=== PATIENT | male | born 1980 | race Caucasian/White ===

== ENCOUNTER 2020-01-19 12:35 | Outpatient (REF) | payer OTHER, SELFPAY | END 2020-01-19 12:36 | disposition home or self-care (01) | LOC: HO.HMGCLDS 12:35 | PROVIDERS: PCP Internal Medicine; Visit Provider Internal Medicine | DX: Z20.828 Contact with and (suspected) exposure to other viral communicable diseases (principal) | CPT/HCPCS: 87635 ==

== ENCOUNTER → 2020-01-25 12:23 | Outpatient (BNVA) | payer OTHER, SELFPAY | PROVIDERS: PCP Internal Medicine; Referring Provider Internal Medicine; Visit Provider Nurse Practitioner | DX: Z76.89 Persons encountering health services in other specified circumstances (principal) ==

== ENCOUNTER 2020-02-21 10:11 | Outpatient (REF) | payer OTHER, SELFPAY ==
--- NOTE | 2020-02-21 10:22 | US_ITS ---
EXAMINATION: US ABDOMEN LIMITED CLINICAL INFORMATION: Nonalcoholic steatohepatitis. COMPARISON: Ultrasound abdomen with the elastography 04/06/2019. Ultrasound abdomen 08/18/2018. TECHNIQUE: Real-time imaging of the right upper quadrant abdominal viscera. FINDINGS: PANCREAS: The head and body the pancreas are normal. The tail is not well visualized due to bowel gas. LIVER: Liver echotexture is increased. The liver is normal in size and contour. There is a hypoechoic area adjacent to the gallbladder, a characteristic location of focal fatty sparing. No other focal hepatic lesion. There is no intrahepatic biliary duct dilatation seen. GALLBLADDER: Normal. The gallbladder is physiologically distended without evidence of stones, sludge, polyps, wall thickening or pericholecystic fluid. COMMON BILE DUCT: Normal in caliber measuring 0.3 cm in diameter. RIGHT KIDNEY: Normal. No hydronephrosis. No renal calculi or focal parenchymal lesions. The kidney measures 12.1 cm in maximum dimension. FREE FLUID: None. US/US abdomen limited IMPRESSION: Echogenic liver probably representing fatty infiltration. Limited visualization of the tail of the pancreas.
[2020-02-21 12:01] LABS: Alanine Aminotransferase 90 U/L (0-40); Albumin Level 4.4 g/dL (3.5-5.0); Alkaline Phosphatase 61 U/L (39-117); Aspartate Amino Transferase 35 U/L (5-37); Bilirubin Direct 0.2 mg/dL (0.0-0.5); Bilirubin Total 0.6 mg/dL (0.0-1.0); Total Protein 7.8 g/dL (6.5-8.0)
[2020-02-23 13:27] LABS: Alpha Fetoprotein 9.2 ng/mL (<6.1)
== END 2020-02-21 10:12 | disposition home or self-care (01) ==
LOC: HO.US 10:11
PROVIDERS: PCP Internal Medicine; Visit Provider Nurse Practitioner
DX: K75.81 Nonalcoholic steatohepatitis (NASH) (principal)
CPT/HCPCS: 76705; 80076; 82105

== ENCOUNTER 2020-11-28 10:53 | Outpatient (REF) | payer OTHER, SELFPAY ==
[2020-11-28 13:52] LABS: Hematocrit 44.7 % (42-52); Hemoglobin 15.1 g/dl (14.0-18.0); Mean Corpuscular HGB Conc 33.8 g/dl (31.0-36.0); Mean Corpuscular Hemoglobin 28.7 pg (27.0-33.0); Mean Corpuscular Volume 84.8 fL (80-98); Mean Platelet Volume 10.1 fL (9.4-12.4); Platelet Count 302 X10*3/uL (160-400); Red Blood Count 5.27 X10*6/uL (4.60-5.80); Red Cell Distribution Width 12.4 % (11.0-16.0); White Blood Count 4.9 X10*3/uL (4.8-10.8)
[2020-11-28 14:24] LABS: Anion Gap 17 (12-20); Blood Urea Nitrogen 10 mg/dL (9-16); Calcium 9.5 mg/dL (8.4-10.2); Carbon Dioxide 22 mmol/L (22-29); Chloride 100 mmol/L (96-108); Cholesterol 359 mg/dL; Estimated Glomerular Filt Rate > 60; Glucose Random 88 mg/dL (60-115); HDL Cholesterol 39 mg/dL; Potassium 4.5 mmol/L (3.3-5.1); Sodium 134 mmol/L (135-145); Triglycerides 641 mg/dL
== END 2020-11-28 10:54 | disposition home or self-care (01) ==
LOC: HO.HMGCLDS 10:53
PROVIDERS: PCP Internal Medicine; Visit Provider Internal Medicine
DX: B36.0 Pityriasis versicolor (principal); K75.81 Nonalcoholic steatohepatitis (NASH)
CPT/HCPCS: 36415; 80048; 80061; 85027

== ENCOUNTER → 2020-12-24 08:21 | Outpatient (BNVA) | payer OTHER, SELFPAY | PROVIDERS: PCP Internal Medicine; Visit Provider Nurse Practitioner ==

== ENCOUNTER 2021-02-04 09:07 | Outpatient (REF) | payer OTHER, SELFPAY ==
[2021-02-04 11:42] LABS: MANUAL DIFF FLAG NO
[2021-02-04 11:52] LABS: Basophils Absolute Auto 0.1 X10*3/uL (0.0-0.2); Basophils Percent Auto 0.9 % (0-2); Eosinophils Absolute Auto 0.1 X10*3/uL (0.0-0.4); Eosinophils Percent Auto 1.5 % (0-4); Hematocrit 44.2 % (42.0-52.0); Hemoglobin 14.5 g/dl (14.0-18.0); Imm Gran Abs Auto 0.02 X10*3/uL (0.00-0.03); Imm Gran Pct Auto 0.4 % (0.0-0.4); Lymphocytes Absolute Auto 1.8 X10*3/uL (1.2-4.9); Lymphocytes Percent Auto 34.2 % (20-40); Mean Corpuscular HGB Conc 32.8 g/dl (31.0-36.0); Mean Corpuscular Hemoglobin 28.5 pg (27.0-33.0); Mean Corpuscular Volume 86.8 fL (80.0-98.0); Mean Platelet Volume 9.8 fL (9.4-12.4); Monocytes Absolute Auto 0.6 X10*3/uL (0.1-1.2); Monocytes Percent Auto 10.7 % (2-11); Neutrophils Absolute Auto 2.8 x10*3/uL (2.0-8.3); Neutrophils Percent Auto 52.3 % (45-73); Platelet Count 291 X10*3/uL (160-400); Red Blood Count 5.09 X10*6/uL (4.60-5.80); Red Cell Distribution Width 12.7 % (11.0-16.0); White Blood Count 5.4 X10*3/uL (4.8-10.8)
[2021-02-04 12:15] LABS: Alanine Aminotransferase 145 U/L (0-40); Albumin Level 4.4 g/dL (3.5-5.0); Alkaline Phosphatase 63 U/L (39-117); Anion Gap 15 (12-20); Aspartate Amino Transferase 54 U/L (5-37); Bilirubin Total 0.8 mg/dL (0.0-1.0); Blood Urea Nitrogen 14 mg/dL (9-16); Calcium 9.2 mg/dL (8.4-10.2); Carbon Dioxide 24 mmol/L (22-29); Chloride 102 mmol/L (96-108); Cholesterol 278 mg/dL; Estimated Glomerular Filt Rate > 60; Gamma Glutamyl Transpeptidase 112 U/L (11-51); Glucose Fasting 101 mg/dL (60-99); HDL Cholesterol 44 mg/dL; Lipase 15 U/L (8-78); Potassium 4.4 mmol/L (3.3-5.1); Sodium 137 mmol/L (135-145); Total Protein 7.9 g/dL (6.5-8.0); Triglycerides 550 mg/dL
[2021-02-04 12:28] LABS: TSH reflex Free T4 0.88 uIU/mL (0.32-4.0)
[2021-02-07 14:06] LABS: Alpha Fetoprotein 10.9 ng/mL (<6.1)
== END 2021-02-04 09:08 | disposition home or self-care (01) ==
LOC: HO.HMGCLDS 09:07
PROVIDERS: PCP Internal Medicine; Visit Provider Nurse Practitioner
DX: K70.30 Alcoholic cirrhosis of liver without ascites (principal); K75.81 Nonalcoholic steatohepatitis (NASH); E66.09 Other obesity due to excess calories; E78.2 Mixed hyperlipidemia; R79.89 Other specified abnormal findings of blood chemistry
CPT/HCPCS: 36415; 80053; 80061; 82105; 82977; 83690; 84443; 85025

== ENCOUNTER 2021-02-06 08:58 | Outpatient (REF) | payer OTHER, SELFPAY ==
--- NOTE | ~2021-02-06 | US_ITS ---
EXAMINATION: US ABDOMEN LIMITED CLINICAL INFORMATION: Nonalcoholic steatohepatitis. COMPARISON: Limited abdominal ultrasound 02/21/2020. Ultrasound abdomen with elastography 04/06/2019. TECHNIQUE: Real-time imaging of the right upper quadrant abdominal viscera. FINDINGS: PANCREAS: Normal. LIVER: The liver is normal in size. The liver contour is normal. There is diffuse hepatic echogenicity with areas of focal fatty sparing adjacent to the gallbladder. No focal hepatic lesion. There is no intrahepatic biliary duct dilatation seen. GALLBLADDER: The gallbladder is physiologically distended without evidence of stones, sludge, polyps, wall thickening or pericholecystic fluid. Gallbladder wall thickness measures 0.13 COMMON BILE DUCT: Normal in caliber measuring 0.26 cm in diameter. RIGHT KIDNEY: There is hypertrophic column of Jluis in midpole. No hydronephrosis. No renal calculi or focal parenchymal lesions. The kidney measures 12.8 cm in maximum dimension. FREE FLUID: None. US/US abdomen limited IMPRESSION: Diffuse hepatic echogenicity with areas of focal fatty sparing. Unremarkable gallbladder, pancreas and CBD. Prominent column of Jluis in right kidney.
== END 2021-02-06 08:59 | disposition home or self-care (01) ==
LOC: HO.HMGCX 08:58
PROVIDERS: PCP Internal Medicine; Visit Provider Nurse Practitioner
DX: K75.81 Nonalcoholic steatohepatitis (NASH) (principal)
CPT/HCPCS: 76705

== ENCOUNTER 2021-03-28 10:20 | Outpatient (REF) | payer OTHER, SELFPAY ==
[2021-04-05 10:01] LABS: Influenza A RNA Ref NOT DETECTED; Influenza B RNA Ref NOT DETECTED
[2021-04-05 10:03] LABS: SARS CoV2 RNA Ref DETECTED
== END 2021-03-28 10:21 | disposition home or self-care (01) ==
LOC: HO.LAB 10:20
PROVIDERS: Visit Provider Hospitalist
DX: R51.9 Headache, unspecified (principal); Z20.822 Contact with and (suspected) exposure to COVID-19
CPT/HCPCS: 0241U; 36415

== ENCOUNTER 2021-04-23 08:56 | Outpatient (REF) | payer OTHER, SELFPAY ==
[2021-04-23 12:04] LABS: Alanine Aminotransferase 23 U/L (0-40); Albumin Level 4.5 g/dL (3.5-5.0); Alkaline Phosphatase 64 U/L (39-117); Anion Gap 12 (12-20); Aspartate Amino Transferase 28 U/L (5-37); Bilirubin Total 0.6 mg/dL (0.0-1.0); Blood Urea Nitrogen 15 mg/dL (9-16); Calcium 10.1 mg/dL (8.4-10.2); Carbon Dioxide 26 mmol/L (22-29); Chloride 104 mmol/L (96-108); Cholesterol 273 mg/dL; Estimated Glomerular Filt Rate > 60; Glucose Fasting 101 mg/dL (60-99); HDL Cholesterol 39 mg/dL; LDL Cholesterol Calculated 189 mg/dl; Potassium 4.9 mmol/L (3.3-5.1); Sodium 137 mmol/L (135-145); Total Protein 8.1 g/dL (6.5-8.0); Triglycerides 227 mg/dL
[2021-04-24 11:41] LABS: Alpha Fetoprotein 10.7 ng/mL (<6.1)
== END 2021-04-23 08:57 | disposition home or self-care (01) ==
LOC: HO.HMGCLDS 08:56
PROVIDERS: PCP Internal Medicine; Visit Provider Internal Medicine
DX: Z00.01 Encounter for general adult medical examination with abnormal findings (principal); B36.0 Pityriasis versicolor; E66.09 Other obesity due to excess calories; E78.2 Mixed hyperlipidemia; K70.9 Alcoholic liver disease, unspecified; R79.89 Other specified abnormal findings of blood chemistry
CPT/HCPCS: 36415; 80053; 80061; 82105

== ENCOUNTER 2021-05-02 11:45 | Outpatient (REF) | payer OTHER, SELFPAY ==
[2021-05-04 19:31] LABS: TS Negative Control Passed; TS Panel A 0; TS Panel B 0; TS Positive Control Passed; TSpotTB Negative (Negative)
== END 2021-05-02 11:46 | disposition home or self-care (01) ==
LOC: HO.HMGCLDS 11:45
PROVIDERS: PCP Internal Medicine; Visit Provider Internal Medicine
DX: Z11.1 Encounter for screening for respiratory tuberculosis (principal)
CPT/HCPCS: 36415; 86481

== ENCOUNTER 2021-06-27 09:04 | Outpatient (REF) | payer OTHER, SELFPAY ==
[2021-06-27 11:32] LABS: Blood Urea Nitrogen 12 mg/dL (9-16); Estimated Glomerular Filt Rate > 60
[2021-06-28 20:06] LABS: HCG Tumor Marker <3 mIU/mL (<5)
== END 2021-06-27 09:05 | disposition home or self-care (01) ==
LOC: HO.LAB 09:04
PROVIDERS: PCP Internal Medicine; Referring Provider Internal Medicine; Visit Provider Nurse Practitioner
DX: K70.30 Alcoholic cirrhosis of liver without ascites (principal); R77.2 Abnormality of alphafetoprotein; E78.00 Pure hypercholesterolemia, unspecified; Z78.9 Other specified health status
CPT/HCPCS: 36415; 82565; 84520; 84702

== ENCOUNTER → 2021-09-18 15:03 | Outpatient (BNVA) | payer OTHER, SELFPAY | PROVIDERS: PCP Internal Medicine; Referring Provider Nurse Practitioner; Visit Provider Internal Medicine | DX: E78.2 Mixed hyperlipidemia (principal); K70.9 Alcoholic liver disease, unspecified; K70.30 Alcoholic cirrhosis of liver without ascites | CPT/HCPCS: 93005 ==

== ENCOUNTER 2021-10-11 08:42 | Outpatient (REF) | payer OTHER, SELFPAY ==
[2021-10-11 12:23] LABS: Alanine Aminotransferase 43 U/L (0-40); Albumin Level 4.6 g/dL (3.5-5.0); Alkaline Phosphatase 57 U/L (39-117); Anion Gap 10 (12-20); Aspartate Amino Transferase 23 U/L (5-37); Bilirubin Total 0.7 mg/dL (0.0-1.0); Blood Urea Nitrogen 14 mg/dL (9-16); Calcium 9.7 mg/dL (8.4-10.2); Carbon Dioxide 27 mmol/L (22-29); Chloride 104 mmol/L (96-108); Cholesterol 308 mg/dL; Estimated Glomerular Filt Rate > 60; Glucose Fasting 105 mg/dL (60-99); HDL Cholesterol 38 mg/dL; LDL Cholesterol Calculated 210 mg/dl; Potassium 4.9 mmol/L (3.3-5.1); Sodium 136 mmol/L (135-145); Total Protein 7.9 g/dL (6.5-8.0); Triglycerides 300 mg/dL
== END 2021-10-11 08:43 | disposition home or self-care (01) ==
LOC: HO.HMGCLDS 08:42
PROVIDERS: Visit Provider Internal Medicine
DX: E78.2 Mixed hyperlipidemia (principal); R79.89 Other specified abnormal findings of blood chemistry
CPT/HCPCS: 36415; 80053; 80061

== ENCOUNTER 2022-04-29 08:30 | Outpatient (REF) | payer OTHER, SELFPAY ==
[2022-04-29 12:11] LABS: Alanine Aminotransferase 35 U/L (0-40); Albumin Level 4.3 g/dL (3.5-5.0); Alkaline Phosphatase 55 U/L (39-117); Anion Gap 14 (12-20); Aspartate Amino Transferase 23 U/L (5-37); Bilirubin Total 0.5 mg/dL (0.0-1.0); Blood Urea Nitrogen 10 mg/dL (9-16); Calcium 9.3 mg/dL (8.4-10.2); Carbon Dioxide 23 mmol/L (22-29); Chloride 105 mmol/L (96-108); Cholesterol 300 mg/dL; Estimated Glomerular Filt Rate > 60; Glucose Fasting 104 mg/dL (60-99); HDL Cholesterol 40 mg/dL; LDL Cholesterol Calculated 214 mg/dl; Potassium 4.7 mmol/L (3.3-5.1); Sodium 137 mmol/L (135-145); Total Protein 7.3 g/dL (6.5-8.0); Triglycerides 230 mg/dL
== END 2022-04-29 08:31 | disposition home or self-care (01) ==
LOC: HO.HMGCLDS 08:30
PROVIDERS: PCP Internal Medicine; Visit Provider Internal Medicine
DX: E66.09 Other obesity due to excess calories (principal); E78.2 Mixed hyperlipidemia
CPT/HCPCS: 36415; 80053; 80061

== ENCOUNTER 2022-04-30 09:05 | Outpatient (REF) | payer OTHER, SELFPAY ==
[2022-04-30 11:45] LABS: Estimated Average Glucose 108 mg/dL; Hemoglobin A1c % 5.4 %
[2022-04-30 11:54] LABS: Alanine Aminotransferase 33 U/L (0-40); Albumin Level 4.4 g/dL (3.5-5.0); Alkaline Phosphatase 58 U/L (39-117); Anion Gap 15 (12-20); Aspartate Amino Transferase 19 U/L (5-37); Bilirubin Total 0.4 mg/dL (0.0-1.0); Blood Urea Nitrogen 9 mg/dL (9-16); Calcium 9.4 mg/dL (8.4-10.2); Carbon Dioxide 19 mmol/L (22-29); Chloride 106 mmol/L (96-108); Estimated Glomerular Filt Rate > 60; Glucose Fasting 110 mg/dL (60-99); Potassium 3.9 mmol/L (3.3-5.1); Sodium 136 mmol/L (135-145); Total Protein 7.6 g/dL (6.5-8.0)
[2022-05-03 10:08] LABS: TS Negative Control Passed; TS Panel A 0; TS Panel B 0; TS Positive Control Passed; TSpotTB Negative (Negative)
== END 2022-04-30 09:06 | disposition home or self-care (01) ==
LOC: HO.HMGCLDS 09:05
PROVIDERS: PCP Internal Medicine; Visit Provider Internal Medicine
DX: E78.2 Mixed hyperlipidemia (principal); R73.01 Impaired fasting glucose; Z11.1 Encounter for screening for respiratory tuberculosis; Z28.39 Other underimmunization status
CPT/HCPCS: 36415; 80053; 83036; 86481; 86735; 86762; 86765; 86787

== ENCOUNTER 2022-07-28 13:45 | Outpatient (REF) | payer OTHER, SELFPAY ==
[2022-07-28 16:26] LABS: MANUAL DIFF FLAG NO
[2022-07-28 16:34] LABS: Basophils Absolute Auto 0.1 X10*3/uL (0.0-0.2); Basophils Percent Auto 0.4 % (0-2); Eosinophils Absolute Auto 0.1 X10*3/uL (0.0-0.4); Eosinophils Percent Auto 0.6 % (0-4); Hematocrit 45.6 % (42.0-52.0); Imm Gran Abs Auto 0.07 X10*3/uL (0.00-0.03); Imm Gran Pct Auto 0.5 % (0.0-0.4); Lymphocytes Absolute Auto 1.6 X10*3/uL (1.2-4.9); Lymphocytes Percent Auto 11.8 % (20-40); Mean Corpuscular HGB Conc 32.9 g/dl (31.0-36.0); Mean Corpuscular Hemoglobin 28.1 pg (27.0-33.0); Mean Corpuscular Volume 85.4 fL (80.0-98.0); Mean Platelet Volume 10.1 fL (9.4-12.4); Monocytes Absolute Auto 1.2 X10*3/uL (0.1-1.2); Monocytes Percent Auto 8.7 % (2-11); Neutrophils Absolute Auto 10.6 x10*3/uL (2.0-8.3); Platelet Count 315 X10*3/uL (160-400); Red Blood Count 5.34 X10*6/uL (4.60-5.80); Red Cell Distribution Width 12.6 % (11.0-16.0); White Blood Count 13.6 X10*3/uL (4.8-10.8)
[2022-07-28 16:46] LABS: Anion Gap 11 (12-20); Blood Urea Nitrogen 9 mg/dL (9-16); Calcium 9.8 mg/dL (8.4-10.2); Carbon Dioxide 27 mmol/L (22-29); Chloride 101 mmol/L (96-108); Estimated Glomerular Filt Rate > 60; Glucose Random 90 mg/dL (60-115); Potassium 4.4 mmol/L (3.3-5.1); Sodium 135 mmol/L (135-145)
== END 2022-07-28 13:46 | disposition home or self-care (01) ==
LOC: HO.HMGCLDS 13:45
PROVIDERS: PCP Internal Medicine; Visit Provider Physician Assistant
DX: R10.32 Left lower quadrant pain (principal)
CPT/HCPCS: 36415; 80048; 85025

== ENCOUNTER 2022-07-29 11:18 | Outpatient (REF) | payer OTHER, SELFPAY ==
--- NOTE | ~2022-07-29 | CT_ITS ---
EXAMINATION: CT ABDOMEN AND PELVIS WITH CONTRAST CLINICAL INFORMATION: Left lower quadrant pain COMPARISON: Previous abdominal ultrasound most recent January 2021 TECHNIQUE: Multidetector volumetric images were obtained from the superior aspect of the liver through the pubic symphysis following administration 85 mL of Omnipaque 350 intravenous contrast. Sagittal and coronal reformatted images were obtained on the technologist's workstation. Oral contrast: Yes This CT examination was performed using dose optimization techniques as appropriate, variously including the following: *Automated exposure control *Adjustment of mA and/or kV according to patient size (this includes techniques or standardized protocols for targeted exams where dose is matched to indication/reason for exam; i.e. extremities or head) *Use of iterative reconstruction technique DLP: 491 mGy-cm FINDINGS: LUNG BASES: The visualized lung bases are unremarkable. LIVER, GALLBLADDER, AND BILIARY TREE: The liver is normal in size, shape, and attenuation. There are 2 small 3 to 4 mm low-attenuation liver lesions high in the dome and in the anterior segment of the right lobe. These are too small to definitively characterize but probably represent small cysts. No other focal hepatic lesion or biliary ductal dilatation is present. The gallbladder is unremarkable with no evidence of radiopaque gallstones, gallbladder wall thickening, or obvious pericholecystic inflammatory changes. PANCREAS: Unremarkable. SPLEEN: Unremarkable. ADRENAL GLANDS: Unremarkable. KIDNEYS AND URETERS: The kidneys are normal in size, shape, and attenuation. No hydronephrosis, hydroureter, or calculi seen. No perinephric stranding. BLADDER: Unremarkable. GASTROINTESTINAL TRACT: There is mild diverticulosis of the colon. There is wall thickening and edema of the left colon and stranding of the surrounding fat. Differential would include colitis and diverticulitis. No evidence of obstruction, perforation or abscess. Short segment nonobstructing small bowel intussusception axial image 48 series 3 coronal reconstructed image 35 and sagittal reconstructed image 31. The appendix is normal. ABDOMINAL WALL: No significant hernia is appreciated. LYMPH NODES: Normal. VASCULAR: Unremarkable. PELVIC VISCERA: Unremarkable. OSSEOUS STRUCTURES: Unremarkable. CT/CT abdomen pelvis w IV con IMPRESSION: Mild colitis or or diverticulitis of the left colon. Short segment nonobstructing small bowel intussusception. Fleischner guidelines were followed.
[2022-07-29] MEDS: Barium Sulfate Oral (Vanilla) 450 ML ORAL.SUSP 900 ML PO (13:56)
[2022-07-29] MEDS: iohexoL 350 MG/ML 100 ML INFUS..BTL IV (13:57)
== END 2022-07-29 11:19 | disposition home or self-care (01) ==
LOC: HO.CT 11:18
PROVIDERS: PCP Internal Medicine; Visit Provider Physician Assistant
DX: R10.32 Left lower quadrant pain (principal)
CPT/HCPCS: 74177; Q9967

== ENCOUNTER 2022-07-30 08:41 | Outpatient (REF) | payer OTHER, SELFPAY ==
[2022-07-30 12:16] LABS: Alanine Aminotransferase 63 U/L (0-40); Albumin Level 4.4 g/dL (3.5-5.0); Alkaline Phosphatase 72 U/L (39-117); Anion Gap 12 (12-20); Aspartate Amino Transferase 36 U/L (5-37); Bilirubin Total 0.7 mg/dL (0.0-1.0); Blood Urea Nitrogen 12 mg/dL (9-16); Calcium 9.6 mg/dL (8.4-10.2); Carbon Dioxide 29 mmol/L (22-29); Chloride 102 mmol/L (96-108); Cholesterol 270 mg/dL; Estimated Glomerular Filt Rate > 60; Glucose Fasting 98 mg/dL (60-99); HDL Cholesterol 41 mg/dL; LDL Cholesterol Calculated 173 mg/dl; Potassium 4.6 mmol/L (3.3-5.1); Sodium 138 mmol/L (135-145); Total Protein 7.7 g/dL (6.5-8.0); Triglycerides 282 mg/dL
== END 2022-07-30 08:42 | disposition home or self-care (01) ==
LOC: HO.HMGCLDS 08:41
PROVIDERS: PCP Internal Medicine; Visit Provider Internal Medicine
DX: R73.01 Impaired fasting glucose (principal); E78.2 Mixed hyperlipidemia
CPT/HCPCS: 36415; 80053; 80061

== ENCOUNTER 2023-05-16 11:48 | Outpatient (REF) | payer OTHER, SELFPAY ==
[2023-05-16 13:54] LABS: Alanine Aminotransferase 60 U/L (0-40); Albumin Level 4.3 g/dL (3.5-5.0); Alkaline Phosphatase 63 U/L (39-117); Aspartate Amino Transferase 28 U/L (5-37); Bilirubin Direct 0.2 mg/dL (0.0-0.5); Bilirubin Total 0.4 mg/dL (0.0-1.0); Cholesterol 286 mg/dL (<200); HDL Cholesterol 38 mg/dL (>40); LDL Cholesterol Calculated 186 mg/dL (<100); Total Protein 7.8 g/dL (6.5-8.0); Triglycerides 310 mg/dL (<150)
[2023-05-16 14:00] LABS: Estimated Average Glucose 105 mg/dL; Hemoglobin A1c % 5.3 % (<6.0)
== END 2023-05-16 11:49 | disposition home or self-care (01) ==
LOC: HO.HMGCLDS 11:48
PROVIDERS: PCP Internal Medicine; Visit Provider Internal Medicine
DX: E78.9 Disorder of lipoprotein metabolism, unspecified (principal); E78.2 Mixed hyperlipidemia; R73.01 Impaired fasting glucose
CPT/HCPCS: 36415; 80061; 80076; 83036

== ENCOUNTER 2023-06-09 10:56 | Outpatient (AMB) | payer OTHER, SELFPAY ==
[2023-06-09 10:59] VITALS: BP 126/92; PULSE 79; O2SAT 97; BMI 33.3
--- NOTE | 2023-06-09 10:59 | A.OFFPC_ITS ---
Vital Signs 06/09/23 10:59 Height 5 ft 6 in Weight 206 lb 6 oz BMI 33.3 BP 126/92 H Blood Pressure Location Rt brachial Position Sitting Pulse 79 Pulse Source Pulse Oximeter Pulse Oximetry (%) 97 Oxygen Delivery Method Room Air Intake Visit Reasons: Annual PE Allergies No Known Allergies Allergy (Verified 06/09/23 11:01) Medication List - Last Reconciled 06/09/23 by Helga Meza MD cholecalciferol (vitamin D3) 125 mcg PO DAILY fluvastatin 40 mg PO DAILY omega 1-fek-bye-fish oil 1,000 mg (120 mg-180 mg) (Fish Oil) 1 cap PO DAILY vitamin E 400 units PO .PO Tobacco use date assessed: 06/09/23 Dental Screening Dental Screen Date: 06/09/23 Did you have a dental visit in the last 12 months?: Yes Did you have a dental problem in the last 6 months where you did not have access to dental care?: No Was dental information given to patient?: Patient has dentist HPI Annual PE HPI Details Physical exam appointment patient is 42-year-old gentleman. Continued to elevated lipids, he is on fluvastatin 40 mg but she is not taking regularly He has seen Dr. 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 Based on the above, there is no strong indication to use statins especially with liver issues As per cardiology recommendations His ALT is 60 and stable LDL continued to be elevated above 180 Triglycerides above 300 He has stopped drinking alcohol BMI is elevated patient is trying to lose weight Labs need to be repeated again in 6 months physical exam 1 year [facility] Surgical History History of esophagogastroduodenoscopy (EGD) Family History Father Acid reflux Varicose veins of esophagus with bleeding Diabetes HTN (hypertension) Mother Hypotension Acid reflux Maternal Grandmother Stomach cancer Maternal Uncle Ulcer Other Mental health disorder Substance use disorder Social History Housing: House Alcohol intake: former Year quit: 2020 Patient Tobacco Use Status: Never used Tobacco e-Cigarette/Vaping Use: Never Used Substance Use Type: Marijuana Current occupational status: employed Cognitive needs: No Hearing needs: No Vision needs: Yes Questionnaire PHQ-9 Over the last 2 weeks, how often have you been bothered by any of the following problems? 1. Little interest or pleasure in doing things: not at all 2. Feeling down, depressed, or hopeless: not at all 3. Trouble falling or staying asleep, or sleeping too much: not at all 4. Feeling tired or having little energy: several days 5. Poor appetite or overeating: not at all 6. Feeling bad about yourself - or that you are a failure or have let yourself or your family down: not at all 7. Trouble concentrating on things, such as reading the newspaper or watching television: not at all 8. Moving or speaking so slowly that other people could have noticed. Or the opposite - being so fidgety or restless that you have been moving around a lot more than usual: not at all 9. Thoughts that you would be better off or of hurting yourself in some way: not at all Total score: 1 Depression Screening Interpretation: Negative Depression Screening Done: Yes 65160 - PHQ-9 Billing: Yes Source: Developed by Drs. Jeffrey Watkins, Joselin Prabhakar, Augusto Daniel and colleagues, with an educational sisi from [employer] Thrive Questionnaire Date Thrive assessed: 06/09/23 I am a: Patient What is your living situation today?: I have a steady place to live Within the past 12 months, did the food you bought not last and you didn't have the money to get more?: Never true Within the past 12 months, did you worry whether your food would run out before you got money to buy more?: Never true Do you have trouble paying for medicines?: No Do you have trouble getting transportation to medical appointments?: No Do you have trouble paying your heating and electricity bill?: No Do you have trouble taking care of your child, family member or friend?: No Do you have trouble with day-to-day activities such as bathing, preparing meals, shopping, managing finances, etc.?: No Are you currently unemployed and looking for a job?: No Are you interested in more education?: No Please select the resources that you would like help with: None Currently or been in a relationship where the following occur: no concerns reported THRIVE Score: 0 AUDIT C Alcohol Use Questionnaire (AUDIT-C) 1. How often do you have a drink containing alcohol?: Never 3. How often do you have six or more drinks on one occasion?: Never Total Score: 0 Score Reviewed/Action Taken: Yes OBED-7 AMB Questionnaire OBED-7 Date OBED - 7 assessed: 06/09/23 Feeling nervous, anxious, or on edge: 0 = Not at all Not being able to stop or control worryin = Not at all Worrying too much about different things: 1 = Several days Trouble relaxin = Not at all Being so restless that it is hard to sit still: 0 = Not at all Becoming easily annoyed or irritable: 0 = Not at all Feeling afraid as if something awful might happen: 0 = Not at all Total OBED-7 score (0-4 normal; 5-9 mild; 10-14 moderate; 15-21 severe): 1 Source: Developed by Drs. Jeffrey Watkins, Joselin Prabhakar, Augusto Daniel and colleagues, with an educational sisi from [employer] OBED-7 Assessment Billing OBED-7 Assessment Tool: OBED-7 Assessment 38283 Review of Systems Const Denies chills, Denies fever(s) and Denies headache(s) Eyes Denies blurry vision ENT Denies headache(s), Denies nasal discharge, Denies nasal obstruction, Denies odynophagia and Denies sinus pain Card Denies chest pain at rest and Denies chest pain with activity Resp Denies cough and Denies hemoptysis GI Denies diarrhea, Denies odynophagia, Denies vomiting and Denies hematemesis Reports as per HPI Musc Denies abnormal gait Skin/Breast Reports as per HPI Neuro Denies Neuro-related abnormal movements, Denies Abnormal speech present, Denies abnormal gait, Denies headache(s) and Denies Sensory deficit (Neuro) Psych Denies mood swings and Denies paranoia Endo Reports as per HPI Abel/Lymph Reports as per HPI Aller/Immun Reports as per HPI Physical exam (Primary Care) Vital Signs: Last Vital Signs Pulse 79 06/09/23 10:59 BP 126/92 H 06/09/23 10:59 Pulse Ox 97 06/09/23 10:59 Oxygen Delivery Method Room Air 06/09/23 10:59 BMI result Body Mass Index 33.3 Tobacco/Smoking Status: Tobacco use Status Tobacco use date assessed 06/09/23 06/09/23 11:02 Patient Tobacco Use Status Never used Tobacco 06/09/23 11:02 e-Cigarette/Vaping Use Never Used 06/09/23 11:02 PHQ-9: PHQ-9 Score PHQ-9: Total score 1 06/09/23 11:41 Depression Screening Interpretation: Negative Thrive Assessment: Date of Thrive Assessment Date Thrive assessed 06/09/23 06/09/23 11:40 Currently or been in a relationship where the following occur: no concerns reported Const General: cooperative, comfortable and no acute distress Orientation/consciousness: patient oriented x3 HENMT Head: Yes normocephalic and Yes atraumatic Eyes General: appearance normal, both eyes and all related structures Pupils: Equal, round and reactive pupils present EOM: EOMs intact bilaterally Neck Neck: Yes supple and No lymphadenopathy Thyroid: Thyroid normal Lymphatic: no lymphadenopathy noted Resp Effort & Inspection: normal respiratory effort and able to speak in complete sentences Auscultation: clear to auscultation bilaterally Cardio Heart sounds: S1 normal heart sound present and S2 normal heart sound present GI Palpation (GI): Soft to palpation and nontender Auscultation: normal bowel sounds General: Yes no CVA tenderness Back/Spine/Pelvis Back: no CVA tenderness Skin General skin exam: elasticity normal and turgor normal Neuro General: patient oriented x3 and gait normal Cranial nerves: Yes Equal, round and reactive pupils present Speech: No Abnormal speech present Sensory Exam: No Sensory deficit (Neuro) Coordination: tandem gait normal and Romberg test negative Extrem General: Yes normal exam except as noted and No edema Assessment and Plan Assessment & Plan (1) Encounter for general adult medical examination with abnormal findings: Code(s): Z00.01 - Encounter for general adult medical examination with abnormal findings (2) Lipid disorder: Code(s): E78.9 - Disorder of lipoprotein metabolism, unspecified (3) LFT elevation: Comment: Baseline AFP 11.1 Code(s): R79.89 - Other specified abnormal findings of blood chemistry (4) Obesity due to excess calories: Code(s): E66.09 - Other obesity due to excess calories Qualifiers: Body mass index: BMI 33.0-33.9 Obesity classification: adult class 1 (BMI 30 - 34.9) Serious obesity comorbidity presence: with serious comorbidity Qualified Code(s): E66.09 - Other obesity due to excess calories; Z68.33 - Body mass index [BMI] 33.0-33.9, adult Plan Physical exam appointment patient is 42-year-old gentleman. Continued to elevated lipids, he is on fluvastatin 40 mg but she is not taking regularly He has seen Dr. 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 Based on the above, there is no strong indication to use statins especially with liver issues As per cardiology recommendations His ALT is 60 and stable LDL continued to be elevated above 180 Triglycerides above 300 He has stopped drinking alcohol BMI is elevated patient is trying to lose weight Labs need to be repeated again in 6 months physical exam 1 year Orders: Orders Comprehensive Met. Panel 6 Months E66.09 - Other obesity due to excess calories, E78.9 - Disorder of lipoprotein metabolism, unspecified, R79.89 - Other specified abnormal findings of blood chemistry Lipid Panel 6 Months E66.09 - Other obesity due to excess calories, E78.9 - Disorder of lipoprotein metabolism, unspecified, R79.89 - Other specified abnormal findings of blood chemistry Medications: Refilled fluvastatin 40 mg PO DAILY 90 caps 1RF Coding Level of Care Code Est Pt Prev Care 40-64y(14392) Diagnoses Encounter for general adult medical examination with abnormal findings Z00.01 Lipid disorder E78.9 LFT elevation R79.89 Class 1 obesity due to excess calories with serious comorbidity and body mass index (BMI) of 33.0 to 33.9 in adult E66.09; Z68.33 Body mass index: BMI 33.0-33.9 Obesity classification: adult class 1 (BMI 30 - 34.9) Serious obesity comorbidity presence: with serious comorbidity Additional Codes OBED-7 Assessment Billing - OBED-7 Assessment Tool: OBED-7 Assessment [id number] ([id number])
== END 2023-06-09 12:15 | disposition home or self-care (01) ==
LOC: HO.HMGC 10:56
PROVIDERS: PCP Internal Medicine; Visit Provider Internal Medicine
DX: Z00.01 Encounter for general adult medical examination with abnormal findings (principal); E78.9 Disorder of lipoprotein metabolism, unspecified; R79.89 Other specified abnormal findings of blood chemistry; E66.09 Other obesity due to excess calories; Z68.33 Body mass index [BMI] 33.0-33.9, adult
CPT/HCPCS: 99396

== ENCOUNTER 2023-11-06 14:00 | Outpatient (AMB) | payer OTHER, SELFPAY ==
[2023-11-06 14:03] VITALS: BP 132/94; PULSE 88; O2SAT 97; BMI 31.9
--- NOTE | 2023-11-06 14:03 | A.OFFPC_ITS ---
Vital Signs 11/06/23 14:03 Height 5 ft 6 in Weight 197 lb 6 oz BMI 31.9 BP 132/94 H Blood Pressure Location Lt brachial Position Sitting Pulse 88 Pulse Source Pulse Oximeter Pulse Oximetry (%) 97 Oxygen Delivery Method Room Air Intake Visit Reasons: high blood pressure Allergies No Known Allergies Allergy (Verified 11/06/23 14:04) Medication List - Last Reconciled 11/06/23 by Helga Meza MD cholecalciferol (vitamin D3) 125 mcg PO DAILY fluvastatin 40 mg PO DAILY magnesium 250 mg PO DAILY omega 1-zqx-ccy-fish oil 1,000 mg (120 mg-180 mg) (Fish Oil) 1 cap PO DAILY Tobacco use date assessed: 11/06/23 Dental Screening Dental Screen Date: 11/06/23 Did you have a dental visit in the last 12 months?: Yes Did you have a dental problem in the last 6 months where you did not have access to dental care?: No Was dental information given to patient?: Patient has dentist HPI high blood pressure HPI Details Physical exam appointment patient is 43-year-old gentleman. Patient blood pressure has been running high at home And today it is 132/94 I am starting him on lisinopril 5 mg Patient also have impaired fasting sugar, I strongly recommend to lose weight BMI is 31.9 Continued to elevated lipids, he is on fluvastatin 40 mg As per ASCVD risk food counselor, his 10 year ASCVD risk is about 2.6%, considered low. Patient has seen Cardiology, statins are recommended as long as his liver enzymes are stable Lab order placed to be done fasting Patient will send me blood pressure readings through the portal in a week on medication Follow-up 3 months [facility] Surgical History History of esophagogastroduodenoscopy (EGD) Family History Father Acid reflux Varicose veins of esophagus with bleeding Diabetes HTN (hypertension) Mother Hypotension Acid reflux Maternal Grandmother Stomach cancer Maternal Uncle Ulcer Other Mental health disorder Substance use disorder Social History Housing: House Alcohol intake: former Year quit: 2020 Patient Tobacco Use Status: Never used Tobacco e-Cigarette/Vaping Use: Never Used Substance Use Type: Marijuana Current occupational status: employed Cognitive needs: No Hearing needs: No Vision needs: Yes Questionnaire PHQ-9 Over the last 2 weeks, how often have you been bothered by any of the following problems? 1. Little interest or pleasure in doing things: not at all 2. Feeling down, depressed, or hopeless: several days 3. Trouble falling or staying asleep, or sleeping too much: not at all 4. Feeling tired or having little energy: not at all 5. Poor appetite or overeating: not at all 6. Feeling bad about yourself - or that you are a failure or have let yourself or your family down: not at all 7. Trouble concentrating on things, such as reading the newspaper or watching television: not at all 8. Moving or speaking so slowly that other people could have noticed. Or the opposite - being so fidgety or restless that you have been moving around a lot more than usual: not at all 9. Thoughts that you would be better off or of hurting yourself in some way: not at all Total score: 1 Depression Screening Interpretation: Negative Depression Screening Done: Yes 66869 - PHQ-9 Billing: Yes Source: Developed by Drs. Jeffrey Watkins, Joselin Prabhakar, Augusto Daniel and colleagues, with an educational sisi from [employer]. Thrive Questionnaire Date Thrive assessed: 11/06/23 I am a: Patient What is your living situation today?: I have a steady place to live Within the past 12 months, did the food you bought not last and you didn't have the money to get more?: Never true Within the past 12 months, did you worry whether your food would run out before you got money to buy more?: Never true Do you have trouble paying for medicines?: No Do you have trouble getting transportation to medical appointments?: No Do you have trouble paying your heating and electricity bill?: No Do you have trouble taking care of your child, family member or friend?: No Do you have trouble with day-to-day activities such as bathing, preparing meals, shopping, managing finances, etc.?: No Are you currently unemployed and looking for a job?: No Are you interested in more education?: No Please select the resources that you would like help with: None Currently or been in a relationship where the following occur: No concerns reported THRIVE Score: 0 AUDIT C Alcohol Use Questionnaire (AUDIT-C) 1. How often do you have a drink containing alcohol?: Monthly or less 2. How many drinks containing alcohol do you have on a typical day when you are drinking?: 1 or 2 3. How often do you have six or more drinks on one occasion?: Never Total Score: 1 Score Reviewed/Action Taken: Yes OBED-7 AMB Questionnaire OBED-7 Date OBED - 7 assessed: 11/06/23 Feeling nervous, anxious, or on edge: 1 = Several days Not being able to stop or control worryin = Not at all Worrying too much about different things: 1 = Several days Trouble relaxin = Not at all Being so restless that it is hard to sit still: 0 = Not at all Becoming easily annoyed or irritable: 1 = Several days Feeling afraid as if something awful might happen: 0 = Not at all Total OBED-7 score (0-4 normal; 5-9 mild; 10-14 moderate; 15-21 severe): 3 Source: Developed by Drs. Jeffrey Watkins, Joselin Prabhakar, Augusto Daniel and colleagues, with an educational sisi from [employer]. OBED-7 Assessment Billing OBED-7 Assessment Tool: OBED-7 Assessment 31601 Review of Systems Const Denies chills and Denies fever(s) ENT Denies epistaxis and Denies nasal discharge Card Denies chest pain Resp Denies chest congestion, Denies cough and Denies hemoptysis GI Denies diarrhea and Denies nausea Skin/Breast Denies rash Neuro Reports no additional complaints Psych Reports no additional complaints Endo Reports no additional complaints Physical exam (Primary Care) Vital Signs: Last Vital Signs Pulse 88 11/06/23 14:03 BP 132/94 H 11/06/23 14:03 Pulse Ox 97 11/06/23 14:03 Oxygen Delivery Method Room Air 11/06/23 14:03 BMI result Body Mass Index 31.9 Tobacco/Smoking Status: Tobacco use Status Tobacco use date assessed 11/06/23 11/06/23 14:05 Patient Tobacco Use Status Never used Tobacco 11/06/23 14:05 e-Cigarette/Vaping Use Never Used 11/06/23 14:05 PHQ-9: PHQ-9 Score PHQ-9: Total score 1 11/06/23 14:05 Depression Screening Interpretation: Negative Thrive Assessment: Date of Thrive Assessment Date Thrive assessed 11/06/23 11/06/23 14:05 Currently or been in a relationship where the following occur: No concerns reported Const General: cooperative, comfortable and no acute distress Orientation/consciousness: patient oriented x3 HENMT Head: Yes normocephalic Eyes General: appearance normal, both eyes and all related structures Neck Neck: Yes supple Resp Effort & Inspection: normal respiratory effort, no cough and no stridor Cardio Rhythm: regular rhythm Heart sounds: S1 normal heart sound present and S2 normal heart sound present Skin General skin exam: turgor normal Neuro General: patient oriented x3, tone normal and moves all extremities Extrem Right lower extremity: no edema Left lower extremity: no edema Assessment and Plan Assessment & Plan (1) Hypertension, essential: Code(s): I10 - Essential (primary) hypertension (2) Lipid disorder: Code(s): E78.9 - Disorder of lipoprotein metabolism, unspecified (3) Impaired fasting blood sugar: Code(s): R73.01 - Impaired fasting glucose (4) Screening-pulmonary TB: Code(s): Z11.1 - Encounter for screening for respiratory tuberculosis (5) Obesity due to excess calories: Code(s): E66.09 - Other obesity due to excess calories Qualifiers: Obesity classification: adult class 1 (BMI 30 - 34.9) Serious obesity comorbidity presence: with serious comorbidity Body mass index: BMI 33.0-33.9 Qualified Code(s): E66.09 - Other obesity due to excess calories; Z68.33 - Body mass index [BMI] 33.0-33.9, adult Plan Physical exam appointment patient is 43-year-old gentleman. Patient blood pressure has been running high at home And today it is 132/94 I am starting him on lisinopril 5 mg Patient also have impaired fasting sugar, I strongly recommend to lose weight BMI is 31.9 Continued to elevated lipids, he is on fluvastatin 40 mg As per ASCVD risk food counselor, his 10 year ASCVD risk is about 2.6%, considered low. Patient has seen Cardiology, statins are recommended as long as his liver enzymes are stable Lab order placed to be done fasting Patient will send me blood pressure readings through the portal in a week on medication Follow-up 3 months Orders: Orders Comprehensive Morven. Panel Fast Today E78.9 - Disorder of lipoprotein metabolism, unspecified, R73.01 - Impaired fasting glucose, Z11.1 - Encounter for screening for respiratory tuberculosis Complete Blood Count Auto Diff Today E78.9 - Disorder of lipoprotein metabolism, unspecified, R73.01 - Impaired fasting glucose, Z11.1 - Encounter for screening for respiratory tuberculosis T Spot TB Today E78.9 - Disorder of lipoprotein metabolism, unspecified, R73.01 - Impaired fasting glucose, Z11.1 - Encounter for screening for respiratory tuberculosis Lipid Panel Today E78.9 - Disorder of lipoprotein metabolism, unspecified, R73.01 - Impaired fasting glucose, Z11.1 - Encounter for screening for respiratory tuberculosis TSH reflex Free T4 Today E78.9 - Disorder of lipoprotein metabolism, unspecified, R73.01 - Impaired fasting glucose, Z11.1 - Encounter for screening for respiratory tuberculosis Medications: New lisinopril 5 mg PO DAILY 90 tabs 0RF Coding Level of Care Code Est Pt Level 4 (76935) Diagnoses Hypertension, essential I10 Lipid disorder E78.9 Impaired fasting blood sugar R73.01 Screening-pulmonary TB Z11.1 Class 1 obesity due to excess calories with serious comorbidity and body mass index (BMI) of 33.0 to 33.9 in adult E66.09; Z68.33 Obesity classification: adult class 1 (BMI 30 - 34.9) Serious obesity comorbidity presence: with serious comorbidity Body mass index: BMI 33.0-33.9 Additional Codes OBED-7 Assessment Billing - OBED-7 Assessment Tool: OBED-7 Assessment 25030 ([id number])
== END 2023-11-06 14:40 | disposition home or self-care (01) ==
PROVIDERS: PCP Internal Medicine; Visit Provider Internal Medicine
DX: I10 Essential (primary) hypertension (principal); E78.9 Disorder of lipoprotein metabolism, unspecified; R73.01 Impaired fasting glucose; Z11.1 Encounter for screening for respiratory tuberculosis; E66.09 Other obesity due to excess calories; Z68.33 Body mass index [BMI] 33.0-33.9, adult
CPT/HCPCS: 99214

== ENCOUNTER 2023-11-07 09:42 | Outpatient (REF) | payer OTHER, SELFPAY ==
[2023-11-07 11:04] LABS: MANUAL DIFF FLAG NO
[2023-11-07 11:14] LABS: Basophils Absolute Auto 0.1 X10*3/uL (0.0-0.2); Basophils Percent Auto 1.4 % (0-2); Eosinophils Absolute Auto 0.1 X10*3/uL (0.0-0.4); Eosinophils Percent Auto 2.3 % (0-4); Hematocrit 45.4 % (42.0-52.0); Imm Gran Abs Auto 0.01 X10*3/uL (0.00-0.03); Imm Gran Pct Auto 0.2 % (0.0-0.4); Lymphocytes Absolute Auto 2.1 X10*3/uL (1.2-4.9); Lymphocytes Percent Auto 36.7 % (20-40); Mean Corpuscular Hemoglobin 28.4 pg (27.0-33.0); Mean Corpuscular Volume 85.8 fL (80.0-98.0); Monocytes Absolute Auto 0.6 X10*3/uL (0.1-1.2); Monocytes Percent Auto 10.4 % (2-11); Neutrophils Absolute Auto 2.8 x10*3/uL (2.0-8.3); Platelet Count 308 X10*3/uL (160-400); Red Blood Count 5.29 X10*6/uL (4.60-5.80); Red Cell Distribution Width 12.7 % (11.0-16.0); White Blood Count 5.7 X10*3/uL (4.8-10.8)
[2023-11-07 11:34] LABS: Alanine Aminotransferase 45 U/L (0-40); Albumin Level 4.4 g/dL (3.5-5.0); Alkaline Phosphatase 64 U/L (39-117); Anion Gap 14 (12-20); Aspartate Amino Transferase 22 U/L (5-37); Bilirubin Total 0.4 mg/dL (0.0-1.0); Blood Urea Nitrogen 10 mg/dL (9-16); Calcium 9.6 mg/dL (8.4-10.2); Carbon Dioxide 24 mmol/L (22-29); Chloride 105 mmol/L (96-108); Cholesterol 242 mg/dL (<200); Estimated Glomerular Filt Rate > 60; Glucose Fasting 95 mg/dL (60-99); HDL Cholesterol 36 mg/dL (>40); LDL Cholesterol Calculated 172 mg/dL (<100); Potassium 4.5 mmol/L (3.3-5.1); Sodium 138 mmol/L (135-145); Total Protein 7.7 g/dL (6.5-8.0); Triglycerides 172 mg/dL (<150)
[2023-11-07 11:42] LABS: TSH reflex Free T4 0.99 uIU/mL (0.32-4.0)
== END 2023-11-07 09:43 | disposition home or self-care (01) ==
LOC: HO.HMGCLDS 09:42
PROVIDERS: PCP Internal Medicine; Visit Provider Internal Medicine
DX: E78.9 Disorder of lipoprotein metabolism, unspecified (principal); R73.01 Impaired fasting glucose; Z11.1 Encounter for screening for respiratory tuberculosis
CPT/HCPCS: 36415; 80053; 80061; 84443; 85025

== ENCOUNTER 2024-01-28 09:05 | Outpatient (REF) | payer OTHER, SELFPAY ==
[2024-01-28 14:02] LABS: Albumin Level 4.5 g/dL (3.5-5.0); Alkaline Phosphatase 55 U/L (39-117); Anion Gap 12 (12-20); Aspartate Amino Transferase 34 U/L (5-37); Bilirubin Total 0.5 mg/dL (0.0-1.0); Blood Urea Nitrogen 11 mg/dL (9-16); Calcium 9.7 mg/dL (8.4-10.2); Carbon Dioxide 25 mmol/L (22-29); Chloride 104 mmol/L (96-108); Cholesterol 290 mg/dL (<200); Estimated Glomerular Filt Rate > 60; Glucose Random 97 mg/dL (60-115); HDL Cholesterol 42 mg/dL (>40); LDL Cholesterol Calculated 190 mg/dL (<100); Potassium 4.7 mmol/L (3.3-5.1); Sodium 136 mmol/L (135-145); Triglycerides 294 mg/dL (<150)
[2024-01-28 14:19] LABS: Alanine Aminotransferase 56 U/L (0-40)
[2024-01-30 22:43] LABS: TS Negative Control Passed; TS Panel A 0; TS Panel B 0; TS Positive Control Passed; TSpotTB Negative (Negative)
== END 2024-01-28 09:06 | disposition home or self-care (01) ==
LOC: HO.HMGCLDS 09:05
PROVIDERS: PCP Internal Medicine; Visit Provider Internal Medicine
DX: E78.9 Disorder of lipoprotein metabolism, unspecified (principal); R79.89 Other specified abnormal findings of blood chemistry; E66.09 Other obesity due to excess calories; R73.01 Impaired fasting glucose; Z11.1 Encounter for screening for respiratory tuberculosis
CPT/HCPCS: 36415; 80053; 80061; 86481

== ENCOUNTER 2024-06-14 14:55 | Outpatient (AMB) | payer OTHER, SELFPAY ==
[2024-06-14 14:58] VITALS: BP 124/82; PULSE 82; O2SAT 98; BMI 33.0
--- NOTE | 2024-06-14 14:58 | MHC.PC.OV ---
Vital Signs 06/14/24 14:58 Height 5 ft 6 in Weight 204 lb 4 oz BMI 33.0 BP 124/82 Blood Pressure Location Rt brachial Position Sitting Pulse 82 Pulse Source Pulse Oximeter Pulse Oximetry (%) 98 Oxygen Delivery Method Room Air Intake Visit Reasons: Annual PE Allergies No Known Allergies Allergy (Verified 06/14/24 15:00) Medication List - Last Reconciled 06/14/24 by Helga Meza MD cholecalciferol (vitamin D3) 125 mcg PO DAILY fluvastatin 40 mg PO DAILY lisinopril 5 mg PO DAILY magnesium 250 mg PO DAILY omega 9-oxp-yvq-fish oil 1,000 (120-180) mg (Fish Oil) 1 cap PO DAILY Tobacco use date assessed: 06/14/24 Dental Screening Dental Screen Date: 06/14/24 Did you have a dental visit in the last 12 months?: Yes Did you have a dental problem in the last 6 months where you did not have access to dental care?: No Was dental information given to patient?: Patient has dentist HPI Annual PE HPI Details Physical exam appointment - The patient is a 43-year-old male presenting with a focus on health management and review of chronic conditions. - The patient has Essential Hypertension, with blood pressure levels sometimes linked to emotional stress; lisinopril is used as needed. - The patient experiences chronic anxiety, manifesting as overthinking and lifelong stress, currently intensified due to business responsibilities and managing events impacting him emotionally. - The patient reports past dyslipidemia, for which he takes fluvastatin. - Forgetfulness and distractibility noted at home; growing awareness of these by family members, attributed to recent stress. - The patient displays a keen interest in weight loss to reduce reliance on medications. - Recreational substance use is minimal (infrequent alcohol consumption, marijuana use limited to Indica strains). Health Maintenance - Blood pressure management with monitoring and medication as needed. - Addressing anxiety through behavioral changes; consideration of possible medication. - Referral for alcohol and drug counselor to assist in weight loss and management. - Avoidance of news and emotional triggers discussed to reduce stress. - Discussion regarding the potential benefits and side effects of anxiety medication. - Suggestion for weight management to improve liver function and reduce prediabetic risks. - Counseling on reducing alcohol consumption and marijuana use. Employment - Currently managing a business alongside primary employment, a source of stress. - Engaging in activities that may contribute to increased anxiety levels due to workload and related responsibilities. - Business ownership may influence emotional stress and related health issues. Patient Instructions - Continue to monitor blood pressure regularly and take lisinopril as advised. - Seek opportunities to manage stress and avoid triggers, such as reducing exposure to distressing news. - Consider consulting with a alcohol and drug counselor for weight management strategies. - Maintain minimal alcohol consumption and be cautious with marijuana use. - If mood symptoms persist or worsen, consider discussing anxiety medication with healthcare provider. - Schedule blood tests as advised and follow up appropriately. Review of Systems - General: No fever no chills - Neurological: No headaches no dizziness - Ear nose throat: No sore throat no hearing difficulty no ear pain - Cardiovascular: No syncope, no chest pain, no palpitations - Gastrointestinal: No nausea vomiting or diarrhea - Endocrine: No polyuria polydipsia no heat intolerance - Genitourinary: No dysuria - Skin: No new complaints Physical Exam General: Cooperative, healthy appearing, comfortable, no acute distress Orientation: Patient oriented x3 Head: Normal to inspection Ears: Within normal limit visually Nose: Normal external nose present Face and sinus: Normal facial exam Eyes: Appearance normal, extraocular movement intact pupils reactive Neck: Normal visual inspection and supple Respiratory: Normal respiratory effort and able to speak in complete sentences. Clear to auscultation, no stridor Cardiovascular: S1 and S2 GI: Normal to inspection. Soft to palpation and nontender Skin: Turgor normal, no acute findings, no rashes, no skin problems Neuro: Patient oriented x3, motor sensory intact, balance intact, tandem pass Extremities: Normal to inspection, no swelling, no ankle pain, slight knee pain on prolonged standing [facility] Surgical History History of esophagogastroduodenoscopy (EGD) Family History Father Acid reflux Varicose veins of esophagus with bleeding Diabetes HTN (hypertension) Mother Hypotension Acid reflux Maternal Grandmother Stomach cancer Maternal Uncle Ulcer Other Mental health disorder Substance use disorder Social History Housing: House Alcohol intake: former Year quit: 2020 Patient Tobacco Use Status: Never used Tobacco e-Cigarette/Vaping Use: Never Used Substance Use Type: Marijuana Current occupational status: employed Cognitive needs: No Hearing needs: No Vision needs: Yes Questionnaire PHQ-9 Over the last 2 weeks, how often have you been bothered by any of the following problems? 1. Little interest or pleasure in doing things: not at all 2. Feeling down, depressed, or hopeless: not at all 3. Trouble falling or staying asleep, or sleeping too much: not at all 4. Feeling tired or having little energy: not at all 5. Poor appetite or overeating: not at all 6. Feeling bad about yourself - or that you are a failure or have let yourself or your family down: not at all 7. Trouble concentrating on things, such as reading the newspaper or watching television: not at all 8. Moving or speaking so slowly that other people could have noticed. Or the opposite - being so fidgety or restless that you have been moving around a lot more than usual: not at all 9. Thoughts that you would be better off or of hurting yourself in some way: not at all Total score: 0 Depression Screening Interpretation: Negative Depression Screening Done: Yes 56255 - PHQ-9 Billing: Yes Source: Developed by Drs. Jeffrey Watkins, Joselin Prabhakar, Augusto Daniel and colleagues, with an educational sisi from [employer]. Thrive Questionnaire Date Thrive assessed: 06/14/24 I am a: Patient What is your living situation today?: I have a steady place to live Within the past 12 months, did the food you bought not last and you didn't have the money to get more?: Never true Within the past 12 months, did you worry whether your food would run out before you got money to buy more?: Never true Do you have trouble paying for medicines?: No Do you have trouble getting transportation to medical appointments?: No Do you have trouble paying your heating and electricity bill?: No Do you have trouble taking care of your child, family member or friend?: No Do you have trouble with day-to-day activities such as bathing, preparing meals, shopping, managing finances, etc.?: No Are you currently unemployed and looking for a job?: No Are you interested in more education?: No Please select the resources that you would like help with: None Currently or been in a relationship where the following occur: No concerns reported THRIVE Score: 0 AUDIT C Alcohol Use Questionnaire (AUDIT-C) 1. How often do you have a drink containing alcohol?: Monthly or less 2. How many drinks containing alcohol do you have on a typical day when you are drinking?: 1 or 2 3. How often do you have six or more drinks on one occasion?: Less than monthly Total Score: 2 Score Reviewed/Action Taken: Yes OBED-7 AMB Questionnaire OBED-7 Date OBED - 7 assessed: 06/14/24 Feeling nervous, anxious, or on edge: 1 = Several days Not being able to stop or control worryin = Several days Worrying too much about different things: 1 = Several days Trouble relaxin = Not at all Being so restless that it is hard to sit still: 0 = Not at all Becoming easily annoyed or irritable: 0 = Not at all Feeling afraid as if something awful might happen: 1 = Several days Total OBED-7 score (0-4 normal; 5-9 mild; 10-14 moderate; 15-21 severe): 4 Source: Developed by Drs. Jeffrey Watkins, Joselin Prabhakar, Augusto Daniel and colleagues, with an educational sisi from [employer]. OBED-7 Assessment Billing OBED-7 Assessment Tool: OBED-7 Assessment 29180 Physical exam (Primary Care) Vital Signs: Last Vital Signs Pulse 82 06/14/24 14:58 BP 124/82 06/14/24 14:58 Pulse Ox 98 06/14/24 14:58 Oxygen Delivery Method Room Air 06/14/24 14:58 BMI result Body Mass Index 33.0 Tobacco/Smoking Status: Tobacco use Status Tobacco use date assessed 06/14/24 06/14/24 15:00 Patient Tobacco Use Status Never used Tobacco 06/14/24 15:00 e-Cigarette/Vaping Use Never Used 06/14/24 15:00 PHQ-9: PHQ-9 Score PHQ-9: Total score 0 06/14/24 15:00 Depression Screening Interpretation: Negative Thrive Assessment: Date of Thrive Assessment Date Thrive assessed 06/14/24 06/14/24 15:00 Currently or been in a relationship where the following occur: No concerns reported Coding Level of Care Code Est Pt Level 3 (73262) Est Pt Prev Care 40-64y(09591) Diagnoses Encounter for general adult medical examination with abnormal findings Z00.01 Hypertension, essential I10 Lipid disorder E78.9 Impaired fasting blood sugar R73.01 Class 1 obesity due to excess calories with serious comorbidity and body mass index (BMI) of 33.0 to 33.9 in adult E66.09; Z68.33 Body mass index: BMI 33.0-33.9 Obesity classification: adult class 1 (BMI 30 - 34.9) Serious obesity comorbidity presence: with serious comorbidity Additional Codes OBED-7 Assessment Billing - OBED-7 Assessment Tool: OBED-7 Assessment 21580 ([id number]) PHQ-9 - 81112 - PHQ-9 Billing: Yes ([id number]) Assessment & Plan Assessment & Plan (1) Encounter for general adult medical examination with abnormal findings: Code(s): Z00.01 - Encounter for general adult medical examination with abnormal findings Category: Medical (2) Hypertension, essential: Code(s): I10 - Essential (primary) hypertension Category: Medical (3) Lipid disorder: Code(s): E78.9 - Disorder of lipoprotein metabolism, unspecified Category: Medical (4) Impaired fasting blood sugar: Code(s): R73.01 - Impaired fasting glucose Category: Medical (5) Obesity due to excess calories: Code(s): E66.09 - Other obesity due to excess calories Category: Medical Qualifiers: Body mass index: BMI 33.0-33.9 Obesity classification: adult class 1 (BMI 30 - 34.9) Serious obesity comorbidity presence: with serious comorbidity Qualified Code(s): E66.09 - Other obesity due to excess calories; Z68.33 - Body mass index [BMI] 33.0-33.9, adult Plan Physical exam appointment - The patient is a 43-year-old male presenting with a focus on health management and review of chronic conditions. - The patient has Essential Hypertension, with blood pressure levels sometimes linked to emotional stress; lisinopril is used as needed. - The patient experiences chronic anxiety, manifesting as overthinking and lifelong stress, currently intensified due to business responsibilities and managing events impacting him emotionally. - The patient reports past dyslipidemia, for which he takes fluvastatin. - Forgetfulness and distractibility noted at home; growing awareness of these by family members, attributed to recent stress. - The patient displays a keen interest in weight loss to reduce reliance on medications. - Recreational substance use is minimal (infrequent alcohol consumption, marijuana use limited to Indica strains). Health Maintenance - Blood pressure management with monitoring and medication as needed. - Addressing anxiety through behavioral changes; consideration of possible medication. - Referral for alcohol and drug counselor to assist in weight loss and management. - Avoidance of news and emotional triggers discussed to reduce stress. - Discussion regarding the potential benefits and side effects of anxiety medication. - Suggestion for weight management to improve liver function and reduce prediabetic risks. - Counseling on reducing alcohol consumption and marijuana use. Employment - Currently managing a business alongside primary employment, a source of stress. - Engaging in activities that may contribute to increased anxiety levels due to workload and related responsibilities. - Business ownership may influence emotional stress and related health issues. Patient Instructions - Continue to monitor blood pressure regularly and take lisinopril as advised. - Seek opportunities to manage stress and avoid triggers, such as reducing exposure to distressing news. - Consider consulting with a alcohol and drug counselor for weight management strategies. - Maintain minimal alcohol consumption and be cautious with marijuana use. - If mood symptoms persist or worsen, consider discussing anxiety medication with healthcare provider. - Schedule blood tests as advised and follow up appropriately. Orders: Orders Complete Blood Count Auto Diff Today E66.09 - Other obesity due to excess calories, E78.9 - Disorder of lipoprotein metabolism, unspecified, I10 - Essential (primary) hypertension, R73.01 - Impaired fasting glucose, Z00.01 - Encounter for general adult medical examination with abnormal findings, Z68.33 - Body mass index [BMI] 33.0-33.9, adult Comprehensive [place]. Panel Fast Today E66.09 - Other obesity due to excess calories, E78.9 - Disorder of lipoprotein metabolism, unspecified, I10 - Essential (primary) hypertension, R73.01 - Impaired fasting glucose, Z00.01 - Encounter for general adult medical examination with abnormal findings, Z68.33 - Body mass index [BMI] 33.0-33.9, adult TSH reflex Free T4 Today E66.09 - Other obesity due to excess calories, E78.9 - Disorder of lipoprotein metabolism, unspecified, I10 - Essential (primary) hypertension, R73.01 - Impaired fasting glucose, Z00.01 - Encounter for general adult medical examination with abnormal findings, Z68.33 - Body mass index [BMI] 33.0-33.9, adult Hemoglobin A1c Today R73.01 - Impaired fasting glucose Lipid Panel Today E66.09 - Other obesity due to excess calories, E78.9 - Disorder of lipoprotein metabolism, unspecified, I10 - Essential (primary) hypertension, R73.01 - Impaired fasting glucose, Z00.01 - Encounter for general adult medical examination with abnormal findings, Z68.33 - Body mass index [BMI] 33.0-33.9, adult Vitamin D 25-OH (D2 and D3) Today E66.09 - Other obesity due to excess calories, E78.9 - Disorder of lipoprotein metabolism, unspecified, I10 - Essential (primary) hypertension, R73.01 - Impaired fasting glucose, Z00.01 - Encounter for general adult medical examination with abnormal findings, Z68.33 - Body mass index [BMI] 33.0-33.9, adult Referrals [employer] Nutrition Referral E66.09 - Other obesity due to excess calories, E78.9 - Disorder of lipoprotein metabolism, unspecified, I10 - Essential (primary) hypertension, R73.01 - Impaired fasting glucose, Z68.33 - Body mass index [BMI] 33.0-33.9, adult Medications: Refilled lisinopril 5 mg PO DAILY 90 tabs 1RF
== END 2024-06-14 15:20 | disposition home or self-care (01) ==
LOC: HO.HMCC 14:56
PROVIDERS: PCP Internal Medicine; Visit Provider Internal Medicine
DX: Z00.01 Encounter for general adult medical examination with abnormal findings (principal); I10 Essential (primary) hypertension; E78.9 Disorder of lipoprotein metabolism, unspecified; R73.01 Impaired fasting glucose; E66.09 Other obesity due to excess calories; Z68.33 Body mass index [BMI] 33.0-33.9, adult

== ENCOUNTER → 2024-06-14 14:55 | Outpatient (BNVA) | payer OTHER, SELFPAY | PROVIDERS: PCP Internal Medicine; Visit Provider Internal Medicine | DX: Z00.01 Encounter for general adult medical examination with abnormal findings (principal); I10 Essential (primary) hypertension; E78.9 Disorder of lipoprotein metabolism, unspecified; R73.01 Impaired fasting glucose; E66.09 Other obesity due to excess calories; Z68.33 Body mass index [BMI] 33.0-33.9, adult | CPT/HCPCS: 96127 ==

== ENCOUNTER 2024-06-22 08:58 | Outpatient (AMB) | payer OTHER, SELFPAY ==
--- NOTE | 2024-06-22 09:08 | MHC.OFFWIV ---
Intake Vital Signs 06/22/24 09:09 Height 5 ft 6 in Weight 206 lb BMI 33.2 BP 130/80 Blood Pressure Location Lt brachial Position Sitting Pulse 98 Pulse Source Pulse Oximeter Pulse Oximetry (%) 95 Oxygen Delivery Method Room Air Intake Visit Reasons: EP Cut on RT pointer finger. Intake Note: Patient here for cut on right pointer finger while opening up a can last night. Patient Tobacco Use Status: Never used Tobacco Allergies No Known Allergies Allergy (Verified 06/22/24 09:10) Do you need a note to return to daycare/school/sports/work: Yes HPI HPI Comments History of Present Illness Details History of Present Illness - The patient is a 44 year old male presenting with a laceration to the right index finger. - He sustained the injury last night when he cut himself with a can. - The bleeding was controlled, and initial treatment included cleaning with hydrogen peroxide and application of Vaseline and a Band-Aid. - The laceration is on the joint, the finger is sore, yet the patient retains the ability to fully move the finger - Approximately 15 hours elapsed since the incident, suggesting it is too late for suturing. - The patient's Tdap is outdated, with the last administration recorded on June 15, 2012. - Patient is left hand dominant. Physical Exam General: Cooperative, healthy appearing, comfortable, no acute distress and well developed Orientation: Patient oriented x3 Limitations: No limitations Head: Normal to inspection Ears: Hearing grossly normal bilaterally Nose: Normal External nose present Face and sinus: Normal facial exam Eyes: Appearance normal, both eyes and all related structures Neck: Normal visual inspection and Yes full ROM Respiratory: Normal respiratory effort and able to speak in complete sentences. Skin: No rashes or lesions noted Neuro: Patient oriented x3 Extremities: Normal to inspection, 1cm linear lac on the right index finger inferior to dorsal PIP, full ROM, NVI. [facility] Surgical History History of esophagogastroduodenoscopy (EGD) Family History Father Acid reflux Varicose veins of esophagus with bleeding Diabetes HTN (hypertension) Mother Hypotension Acid reflux Maternal Grandmother Stomach cancer Maternal Uncle Ulcer Other Mental health disorder Substance use disorder Social History Housing: House Alcohol intake: former Year quit: 2020 Patient Tobacco Use Status: Never used Tobacco e-Cigarette/Vaping Use: Never Used Substance Use Type: Marijuana Current occupational status: employed Cognitive needs: No Hearing needs: No Vision needs: Yes Review of Systems Const All systems reviewed & are unremarkable except as noted in HPI and below Physical Exam Vital Signs: Last Vital Signs Pulse 98 06/22/24 09:09 BP 130/80 06/22/24 09:09 Pulse Ox 95 06/22/24 09:09 Oxygen Delivery Method Room Air 06/22/24 09:09 BMI result Body Mass Index 33.2 Office Procedures AMB Laceration Repair Details: cleaned and prepped with betadine, closed with 2 SteriStrips with glued ends, and a splint is applied to keep the finger from bending. Laceration repair performed by: Nadine Jones Explained risks and benefits to parent: Yes Informed consent given: Yes Consent signed: No Location: right 2nd digit Length: 1cm Sedation: No Irrigation: saline Preparation: betadine Wound exploration: none Deep closure: No Skin closure: glue and other (steri-strips) Topical treatment: dry Tetanus toxoid ordered: Yes Patient tolerated procedure: [place]: [place] [id number] Repair <2.5cm Procedure code (CPT) selection complete Immunizations Boostrix Tdap 2.5 Lf unit-8 mcg-5 Lf/0.5 mL intramuscular syringe Performing Provider: Nadine Jones PA-C Performing Location: [facility] Administered by: FCO Collins on 06/22/24 09:50 Dose Route Admin Location Dispensed Lot Number Expiration Date [facility][NOTE 3] [employer] 0.5 mL IM Right Deltoid 0.5 mL [id number] 07/09/26 59089-715-32 [employer] VIS Given Date VIS Provided VIS Publication Date 06/22/24 Single Vaccine 20 Eligibility Eligibility Date Funding Source Not [facility] Eligible 06/22/24 Private Assessment & Plan Assessment & Plan (1) Finger laceration: Code(s): S61.219A - Laceration without foreign body of unspecified finger without damage to nail, initial encounter Qualifiers: Encounter type: initial encounter Finger: index finger Damage to nail status: without damage Foreign body presence: without foreign body Laterality: right Qualified Code(s): S61.210A - Laceration without foreign body of right index finger without damage to nail, initial encounter Plan: The ongoing management of a finger laceration involved using Steri-Strips and adhesive skin closure at the ends of the steri-strips but not on the wound, since it was too late for suturing. A tetanus immunization booster Tdap was administered due to an outdated vaccination record. The laceration was treated with a splint to prevent bending during healing as the lac is next to the PIP joint. Being left-handed, the Tdap was given in the right arm to decrease discomfort. The patient was instructed on keeping the finger dry and the proper use and maintenance of the splint, with flexibility to remove and re-secure it during hygiene routines. The current treatment plan addressed acute concerns without discussion of further evaluation or follow-up. Patient was informed and verbally consented to the use of an ambient scribe for clinic note documentation during this visit. Orders: Orders TDaP Immunization Today S61.219A - Laceration without foreign body of unspecified finger without damage to nail, initial encounter AMB Laceration Repair Today S61.210A - Laceration without foreign body of right index finger without damage to nail, initial encounter Medications: New Boostrix Tdap (diphth,pertus(acell),tetanus) 0.5 mL IM ONCE 0.5 mL 0RF NS S61.219A - Laceration without foreign body of unspecified finger without damage to nail, initial encounter Coding Level of Care Code Est Pt Level 4 (60208) Diagnoses Laceration of right index finger without foreign body without damage to nail, initial encounter S61.210A Encounter type: initial encounter Finger: index finger Damage to nail status: without damage Foreign body presence: without foreign body Laterality: right CPT Codes Office Procedure - Laceration Repair 1: [id number] Repair <2.5cm ([id number])
[2024-06-22 09:09] VITALS: BP 130/80; PULSE 98; O2SAT 95; BMI 33.2
== END 2024-06-22 09:55 | disposition home or self-care (01) ==
PROVIDERS: PCP Internal Medicine; Visit Provider Physician Assistant
DX: S61.210A Laceration without foreign body of right index finger without damage to nail, initial encounter (principal)

== ENCOUNTER → 2024-06-22 08:58 | Outpatient (BNVA) | payer OTHER, SELFPAY | PROVIDERS: PCP Internal Medicine; Visit Provider Physician Assistant | DX: S61.201A Unspecified open wound of left index finger without damage to nail, initial encounter (principal); Z23 Encounter for immunization; W26.8XXA Contact with other sharp object(s), not elsewhere classified, initial encounter; Y93.9 Activity, unspecified; Y92.9 Unspecified place or not applicable; Y99.9 Unspecified external cause status | CPT/HCPCS: 90471; 90715 ==

== ENCOUNTER 2024-09-29 09:07 | Outpatient (REF) | payer OTHER, SELFPAY ==
[2024-09-29 10:42] LABS: MANUAL DIFF FLAG NO
[2024-09-29 10:56] LABS: Hematocrit 44.8 % (42.0-52.0); Hemoglobin 14.8 g/dl (14.0-18.0); Imm Gran Abs Auto 0.02 X10*3/uL (0.00-0.03); Imm Gran Pct Auto 0.3 % (0.0-0.4); Lymphocytes Absolute Auto 1.7 X10*3/uL (1.2-4.9); Mean Corpuscular HGB Conc 33.0 g/dl (31.0-36.0); Mean Corpuscular Hemoglobin 28.1 pg (27.0-33.0); Mean Corpuscular Volume 85.0 fL (80.0-98.0); NRBC Abs Auto 0.000 X10*3/uL (0.0-0.012); NRBC Pct Auto 0.0 /100WBC (0.0-0.2); Platelet Count 316 X10*3/uL (160-400); Red Blood Count 5.27 X10*6/uL (4.60-5.80); White Blood Count 6.3 X10*3/uL (4.8-10.8)
[2024-09-29 11:08] LABS: Hemoglobin A1C 136.7682 umol/L; Total Hemoglobin (HGBA1C) 3897.7886 umol/L
[2024-09-29 11:35] LABS: Alanine Aminotransferase 57 U/L (0-40); Albumin Level 4.5 g/dL (3.5-5.0); Alkaline Phosphatase 58 U/L (39-117); Anion Gap 10 (12-20); Aspartate Amino Transferase 28 U/L (5-37); Blood Urea Nitrogen 10 mg/dL (9-16); Calcium 9.2 mg/dL (8.4-10.2); Carbon Dioxide 24 mmol/L (22-29); Chloride 106 mmol/L (96-108); Cholesterol 318 mg/dL (<200); Estimated Glomerular Filt Rate > 60; HDL Cholesterol 39 mg/dL (>40); Potassium 4.4 mmol/L (3.3-5.1); Sodium 136 mmol/L (135-145); Total Protein 7.6 g/dL (6.5-8.0); Triglycerides 396 mg/dL (<150)
[2024-10-04 16:43] LABS: Vitamin D 25-OH, D2 <4 ng/mL; Vitamin D 25-OH, D3 32 ng/mL; Vitamin D 25-OH, Total 32 ng/mL (30-100)
== END 2024-09-29 09:08 | disposition home or self-care (01) ==
LOC: HO.HMGCLDS 09:07
PROVIDERS: PCP Internal Medicine; Visit Provider Internal Medicine
DX: Z00.01 Encounter for general adult medical examination with abnormal findings (principal); I10 Essential (primary) hypertension; E78.9 Disorder of lipoprotein metabolism, unspecified; R73.01 Impaired fasting glucose; E66.09 Other obesity due to excess calories; Z68.33 Body mass index [BMI] 33.0-33.9, adult
CPT/HCPCS: 36415; 80053; 80061; 82306; 83036; 84443; 85025

== ENCOUNTER 2024-12-16 14:59 | Outpatient (AMB) | payer OTHER, SELFPAY ==
[2024-12-16 15:01] VITALS: BP 112/76; PULSE 82; O2SAT 97; BMI 32.8
--- NOTE | 2024-12-16 15:01 | MHC.PC.OV ---
Vital Signs 12/16/24 15:01 Height 5 ft 6 in Weight 203 lb BMI 32.8 BP 112/76 Blood Pressure Location Lt brachial Position Sitting Pulse 82 Pulse Source Pulse Oximeter Pulse Oximetry (%) 97 Oxygen Delivery Method Room Air Intake Visit Reasons: 6m follow up Allergies No Known Allergies Allergy (Verified 12/16/24 15:02) Medication List - Last Reconciled 12/16/24 by Helga Meza MD cholecalciferol (vitamin D3) 125 mcg PO DAILY fluvastatin 40 mg PO DAILY lisinopril 5 mg PO DAILY magnesium 250 mg PO DAILY omega [id number]-fish oil 1,000 (120-180) mg (Fish Oil) 1 cap PO DAILY Tobacco use date assessed: 06/14/24 Dental Screening Dental Screen Date: 06/14/24 HPI 6m follow up HPI Details Medical History - Hypertension, currently managed with lisinopril 5 mg - Lipid disorder, currently managed with fluvastatin 40 mg - Historical elevated cholesterol requiring cardiology consultation in 2021 - History of Tinea Versicolor Problem List - Essential Hypertension - Hyperlipidemia - Tinea Versicolor - Facial hyperpigmented lesion Plan 1. Essential Hypertension - Continue lisinopril 5 mg; patient mentioned running short on this medication, refill was sent. - Blood pressure was noted as 112/76 mmHg, indicating good control. - Re-assess blood pressure control in the upcoming May physical exam. 2. Hyperlipidemia - Continue fluvastatin 40 mg, although the patient admits to inconsistent adherence. - Discussed the importance of medication compliance to improve LDL levels, currently at 200. - Repeat lipid panel was ordered to assess current state. 3. Tinea Versicolor - Current medications not effectively addressing the condition. - Referral provided to a oxygen equipment technician, [facility], for further evaluation and management. 4. Facial Hyperpigmented Lesion - Patient noted changes to the lesion on the face, becoming darker but without associated symptoms such as itching or pain. - Field Specialist referral to assess and rule out skin cancer. Patient Instructions - Continue taking lisinopril and fluvastatin as prescribed. It is important to keep a consistent schedule. - Make an appointment with the oxygen equipment technician using the provided contact information to evaluate the facial lesion. - Follow through with the blood test that has been ordered; it can be completed on any upcoming open clinic day. - Return for scheduled physical exam on June 20 to ensure comprehensive evaluation and follow-up on blood pressure and lipid levels. Review of Systems - General: No fever no chills - Neurological: No headaches no dizziness - Ear nose throat: No sore throat no hearing difficulty no ear pain - Cardiovascular: No syncope, no chest pain, no palpitations - Gastrointestinal: No nausea vomiting or diarrhea - Endocrine: No polyuria polydipsia no heat intolerance - Genitourinary: No dysuria , no blood in urine Physical Exam General: No acute distress HEENT: No acute findings Neck: Supple Respiratory system: Able to talk in full sentences, no audible wheeze Cardiovascular: S1-S2 regular in rate and rhythm Gastrointestinal: No pain Extremities: No new findings SPUDDER: Alert awake oriented x3 motor intact Skin: Normal turgor, darker area on face noted, no itching or pain reported, left side close to eye [facility] Surgical History History of esophagogastroduodenoscopy (EGD) Family History Father Acid reflux Varicose veins of esophagus with bleeding Diabetes HTN (hypertension) Mother Hypotension Acid reflux Maternal Grandmother Stomach cancer Maternal Uncle Ulcer Other Mental health disorder Substance use disorder Social History Housing: House Alcohol intake: former Year quit: 2020 Patient Tobacco Use Status: Never used Tobacco e-Cigarette/Vaping Use: Never Used Substance Use Type: Marijuana Current occupational status: employed Cognitive needs: No Hearing needs: No Vision needs: Yes Questionnaire PHQ-9 Over the last 2 weeks, how often have you been bothered by any of the following problems? 1. Little interest or pleasure in doing things: not at all 2. Feeling down, depressed, or hopeless: not at all 3. Trouble falling or staying asleep, or sleeping too much: not at all 4. Feeling tired or having little energy: not at all 5. Poor appetite or overeating: not at all 6. Feeling bad about yourself - or that you are a failure or have let yourself or your family down: not at all 7. Trouble concentrating on things, such as reading the newspaper or watching television: not at all 8. Moving or speaking so slowly that other people could have noticed. Or the opposite - being so fidgety or restless that you have been moving around a lot more than usual: not at all 9. Thoughts that you would be better off or of hurting yourself in some way: not at all Total score: 0 Depression Screening Interpretation: Negative Depression Screening Done: Yes 74394 - PHQ-9 Billing: Yes Source: Developed by Drs. Jeffrey Watkins, Joselin Prabhakar, Augusto Daniel and colleagues, with an educational sisi from [employer]. Thrive Questionnaire Date Thrive assessed: 06/14/24 I am a: Patient What is your living situation today?: I have a steady place to live Within the past 12 months, did the food you bought not last and you didn't have the money to get more?: Never true Within the past 12 months, did you worry whether your food would run out before you got money to buy more?: Never true Do you have trouble paying for medicines?: No Do you have trouble getting transportation to medical appointments?: No Do you have trouble paying your heating and electricity bill?: No Do you have trouble taking care of your child, family member or friend?: No Do you have trouble with day-to-day activities such as bathing, preparing meals, shopping, managing finances, etc.?: No Are you currently unemployed and looking for a job?: No Are you interested in more education?: No Please select the resources that you would like help with: None Currently or been in a relationship where the following occur: No concerns reported THRIVE Score: 0 AUDIT C Alcohol Use Questionnaire (AUDIT-C) 1. How often do you have a drink containing alcohol?: Monthly or less 2. How many drinks containing alcohol do you have on a typical day when you are drinking?: 1 or 2 3. How often do you have six or more drinks on one occasion?: Less than monthly Total Score: 2 OBED-7 AMB Questionnaire OBED-7 Date OBED - 7 assessed: 06/14/24 Feeling nervous, anxious, or on edge: 1 = Several days Not being able to stop or control worryin = Several days Worrying too much about different things: 1 = Several days Trouble relaxin = Not at all Being so restless that it is hard to sit still: 0 = Not at all Becoming easily annoyed or irritable: 0 = Not at all Feeling afraid as if something awful might happen: 1 = Several days Total OBED-7 score (0-4 normal; 5-9 mild; 10-14 moderate; 15-21 severe): 4 Source: Developed by Drs. Jeffrey Watkins, Joselin Prabhakar, Augusto Daniel and colleagues, with an educational sisi from [employer]. OBED-7 Assessment Billing OBED-7 Assessment Tool: OBED-7 Assessment 82899 Physical exam (Primary Care) Vital Signs: Last Vital Signs Pulse 82 12/16/24 15:01 BP 112/76 12/16/24 15:01 Pulse Ox 97 12/16/24 15:01 Oxygen Delivery Method Room Air 12/16/24 15:01 BMI result Body Mass Index 32.8 Tobacco/Smoking Status: Tobacco use Status Tobacco use date assessed 06/14/24 12/16/24 15:02 Patient Tobacco Use Status Never used Tobacco 12/16/24 15:02 e-Cigarette/Vaping Use Never Used 12/16/24 15:02 PHQ-9: PHQ-9 Score PHQ-9: Total score 0 12/16/24 15:02 Depression Screening Interpretation: Negative Thrive Assessment: Date of Thrive Assessment Date Thrive assessed 06/14/24 12/16/24 15:02 Currently or been in a relationship where the following occur: No concerns reported Coding Level of Care Code Est Pt Level 4 (50849) Diagnoses Hypertension, essential I10 Lipid disorder E78.9 Tinea versicolor B36.0 Skin cancer screening Z12.83 Class 1 obesity due to excess calories with serious comorbidity and body mass index (BMI) of 33.0 to 33.9 in adult E66.09; Z68.33 Obesity classification: adult class 1 (BMI 30 - 34.9) Serious obesity comorbidity presence: with serious comorbidity Body mass index: BMI 33.0-33.9 Impaired fasting blood sugar R73.01 Additional Codes PHQ-9 - 93503 - PHQ-9 Billing: Yes ([id number]) OBED-7 Assessment Billing - OBED-7 Assessment Tool: OBED-7 Assessment [id number] ([id number]) Assessment & Plan Assessment & Plan (1) Hypertension, essential: Code(s): I10 - Essential (primary) hypertension Category: Medical (2) Lipid disorder: Code(s): E78.9 - Disorder of lipoprotein metabolism, unspecified Category: Medical (3) Tinea versicolor: Code(s): B36.0 - Pityriasis versicolor Category: Medical (4) Skin cancer screening: Code(s): Z12.83 - Encounter for screening for malignant neoplasm of skin Category: Medical (5) Obesity due to excess calories: Code(s): E66.09 - Other obesity due to excess calories Category: Medical Qualifiers: Obesity classification: adult class 1 (BMI 30 - 34.9) Serious obesity comorbidity presence: with serious comorbidity Body mass index: BMI 33.0-33.9 Qualified Code(s): E66.09 - Other obesity due to excess calories; Z68.33 - Body mass index [BMI] 33.0-33.9, adult (6) Impaired fasting blood sugar: Code(s): R73.01 - Impaired fasting glucose Category: Medical Plan Medical History - Hypertension, currently managed with lisinopril 5 mg - Lipid disorder, currently managed with fluvastatin 40 mg - Historical elevated cholesterol requiring cardiology consultation in 2021 - History of Tinea Versicolor Problem List - Essential Hypertension - Hyperlipidemia - Tinea Versicolor - Facial hyperpigmented lesion IFS , diet control obesity Plan 1. Essential Hypertension - Continue lisinopril 5 mg; patient mentioned running short on this medication, refill was sent. - Blood pressure was noted as 112/76 mmHg, indicating good control. - Re-assess blood pressure control in the upcoming May physical exam. 2. Hyperlipidemia - Continue fluvastatin 40 mg, although the patient admits to inconsistent adherence. - Discussed the importance of medication compliance to improve LDL levels, currently at 200. - Repeat lipid panel was ordered to assess current state. 3. Tinea Versicolor - Current medications not effectively addressing the condition. - Referral provided to a oxygen equipment technician, [facility], for further evaluation and management. 4. Facial Hyperpigmented Lesion - Patient noted changes to the lesion on the face, becoming darker but without associated symptoms such as itching or pain. - Field Specialist referral to assess and rule out skin cancer. Patient Instructions - Continue taking lisinopril and fluvastatin as prescribed. It is important to keep a consistent schedule. - Make an appointment with the oxygen equipment technician using the provided contact information to evaluate the facial lesion. - Follow through with the blood test that has been ordered; it can be completed on any upcoming open clinic day. - Return for scheduled physical exam on June 20 to ensure comprehensive evaluation and follow-up on blood pressure and lipid levels. Orders: Orders Comprehensive [place]. Panel Fast Today E78.9 - Disorder of lipoprotein metabolism, unspecified, I10 - Essential (primary) hypertension Lipid Panel Today E78.9 - Disorder of lipoprotein metabolism, unspecified, I10 - Essential (primary) hypertension Lipid Panel 6 Months E78.9 - Disorder of lipoprotein metabolism, unspecified, I10 - Essential (primary) hypertension Complete Blood Count Auto Diff Today E78.9 - Disorder of lipoprotein metabolism, unspecified, I10 - Essential (primary) hypertension Comprehensive Met. Panel 6 Months E78.9 - Disorder of lipoprotein metabolism, unspecified, I10 - Essential (primary) hypertension Referrals Dermatology Referral B36.0 - Pityriasis versicolor, Z12.83 - Encounter for screening for malignant neoplasm of skin Medications: Refilled fluvastatin 40 mg PO DAILY 90 caps 1RF lisinopril 5 mg PO DAILY 90 tabs 1RF
== END 2024-12-16 15:20 | disposition home or self-care (01) ==
LOC: HO.HMCC 15:00
PROVIDERS: PCP Internal Medicine; Visit Provider Internal Medicine
DX: I10 Essential (primary) hypertension (principal); E78.9 Disorder of lipoprotein metabolism, unspecified; B36.0 Pityriasis versicolor; Z12.83 Encounter for screening for malignant neoplasm of skin; E66.09 Other obesity due to excess calories; Z68.33 Body mass index [BMI] 33.0-33.9, adult; R73.01 Impaired fasting glucose

== ENCOUNTER → 2024-12-16 14:59 | Outpatient (BNVA) | payer OTHER, SELFPAY | PROVIDERS: PCP Internal Medicine; Visit Provider Internal Medicine | DX: I10 Essential (primary) hypertension (principal); E78.5 Hyperlipidemia, unspecified; B36.0 Pityriasis versicolor; E66.09 Other obesity due to excess calories; E66.811 Obesity, class 1; R73.01 Impaired fasting glucose; Z68.33 Body mass index [BMI] 33.0-33.9, adult | CPT/HCPCS: 96127 ==

== ENCOUNTER 2024-12-19 08:49 | Outpatient (REF) | payer OTHER, SELFPAY ==
[2024-12-19 09:57] LABS: MANUAL DIFF FLAG NO
[2024-12-19 10:09] LABS: Hematocrit 43.3 % (42.0-52.0); Hemoglobin 14.5 g/dl (14.0-18.0); Imm Gran Abs Auto 0.01 X10*3/uL (0.00-0.03); Imm Gran Pct Auto 0.2 % (0.0-0.4); Lymphocytes Absolute Auto 1.7 X10*3/uL (1.2-4.9); Mean Corpuscular HGB Conc 33.5 g/dl (31.0-36.0); Mean Corpuscular Hemoglobin 28.3 pg (27.0-33.0); Mean Corpuscular Volume 84.4 fL (80.0-98.0); NRBC Abs Auto 0.000 X10*3/uL (0.0-0.012); NRBC Pct Auto 0.0 /100WBC (0.0-0.2); Platelet Count 288 X10*3/uL (160-400); Red Blood Count 5.13 X10*6/uL (4.60-5.80); White Blood Count 5.1 X10*3/uL (4.8-10.8)
[2024-12-19 11:01] LABS: Alanine Aminotransferase 51 U/L (0-40); Albumin Level 4.6 g/dL (3.5-5.0); Alkaline Phosphatase 56 U/L (39-117); Anion Gap 9 (12-20); Aspartate Amino Transferase 47 U/L (5-37); Blood Urea Nitrogen 14 mg/dL (9-16); Calcium 9.2 mg/dL (8.4-10.2); Carbon Dioxide 27 mmol/L (22-29); Chloride 106 mmol/L (96-108); Cholesterol 326 mg/dL (<200); Estimated Glomerular Filt Rate > 60; HDL Cholesterol 39 mg/dL (>40); Potassium 4.4 mmol/L (3.3-5.1); Sodium 138 mmol/L (135-145); Total Protein 7.7 g/dL (6.5-8.0); Triglycerides 279 mg/dL (<150)
== END 2024-12-19 08:50 | disposition home or self-care (01) ==
LOC: HO.HMGCLDS 08:49
PROVIDERS: PCP Internal Medicine; Visit Provider Internal Medicine
DX: I10 Essential (primary) hypertension (principal); E78.9 Disorder of lipoprotein metabolism, unspecified
CPT/HCPCS: 36415; 80053; 80061; 85025